=== PATIENT | female | born 1980 | race Caucasian/White ===

== ENCOUNTER → 2017-11-07 | Outpatient (CLI) | payer BC | LOC: LAB 18:05 | PROVIDERS: ATTEND Obstetrics & Gynecology Obstetrics | DX: A04.72 Enterocolitis due to Clostridium difficile, not specified as recurrent (principal) | CPT/HCPCS: 87493 ==

== ENCOUNTER → 2017-11-26 | Outpatient (CLI) | payer BC | LOC: LAB 13:26 | PROVIDERS: ATTEND Obstetrics & Gynecology Obstetrics | DX: A04.72 Enterocolitis due to Clostridium difficile, not specified as recurrent (principal) | CPT/HCPCS: 87493 ==

== ENCOUNTER → 2018-01-06 | Outpatient (CLI) | payer SELFPAY | END | disposition home or self-care (01) | DRG 373 | LOC: LAB 17:57 | PROVIDERS: ATTEND Obstetrics & Gynecology Obstetrics | DX: A04.71 Enterocolitis due to Clostridium difficile, recurrent (principal) | CPT/HCPCS: 87493 ==

== ENCOUNTER → 2018-02-14 | Outpatient (CLI) | payer BC ==
--- NOTE | 2018-02-14 16:52 | RAD ---
History: Cough and fever Study: Chest two views Findings: PA and left lateral projections of the chest demonstrate no evident cardiopulmonary or bony thoracic abnormality. Impression: Normal chest. Reported By:
== END ==
LOC: RAD 12:33
PROVIDERS: ATTEND Obstetrics & Gynecology Obstetrics
DX: R05 Cough (principal); R07.89 Other chest pain; R50.9 Fever, unspecified
CPT/HCPCS: 71046